=== PATIENT | male | born 2000 | race Caucasian/White ===

== ENCOUNTER 2021-09-19 23:06 | Emergency (ER) | payer BC, OTHER ==
[2021-09-19] MEDS ORDERED: Lidocaine 1% 30 ML SDV INJECT ONE (23:14)
[2021-09-19] MEDS ORDERED: Bacitracin Oint 1 GM U/D Packet TOP ONE (23:15)
== END 2021-09-19 23:47 | disposition home or self-care (01) ==
LOC: DL.ED 23:06
DX: S01.112A Laceration without foreign body of left eyelid and periocular area, initial encounter (principal); W00.0XXA Fall on same level due to ice and snow, initial encounter
CPT/HCPCS: 12011; 99282-25